=== PATIENT | female | born 1955 | race Caucasian/White ===

== ENCOUNTER 2022-07-12 17:00 | Emergency (ER) | payer MEDICARE ==
[~2022-07-12] VITALS: Ht 160 cm; Wt 74.8 kg
[2022-07-12] MEDS ORDERED: LIDOCAINE HCL 1% 20 ML VIAL ONE (18:47)
[2022-07-12 19:39] VITALS: BP 131/60
[2022-07-12] MEDS ORDERED: TETANUS/DIPHTHERIA TOXOID [ADULT] 0.5 ML VIAL IM ONE (19:43)
[2022-07-12] MEDS ORDERED: DIPH,PERTUSS(ACELL),TET VAC/PF 0.5 ML VIAL IM ONE (20:00)
== END 2022-07-12 19:53 | disposition home or self-care (01) ==
LOC: EDH 17:00
DX: S01.111A Laceration without foreign body of right eyelid and periocular area, initial encounter (principal); Z88.2 Allergy status to sulfonamides; W01.110A Fall on same level from slipping, tripping and stumbling with subsequent striking against sharp glass, initial encounter; Y93.89 Activity, other specified; Y92.89 Other specified places as the place of occurrence of the external cause; Y99.8 Other external cause status
CPT/HCPCS: 12013; 90471; 90714; 90715

== ENCOUNTER 2023-05-20 15:18 | Emergency (ER) | payer MEDICARE ==
[~2023-05-20] VITALS: Ht 160 cm; Wt 81.6 kg
[2023-05-20 16:05] LABS: BASOPHILS # (AUTO) 0.03 K/uL (0.00-0.20); BASOPHILS % (AUTO) 0.3 % (0.0-5.0); EOSINOPHILS # (AUTO) 0.18 K/uL (0.00-0.70); EOSINOPHILS % (AUTO) 1.6 % (0.0-8.0); IMMATURE GRANULOCYTE ABSOLUTE 0.04 K/uL (0-1); LYMPHOCYTES # (AUTO) 1.5 K/uL (1.0-4.8); LYMPHOCYTES % (AUTO) 13.6 % (21.0-51.0); MEAN CORPUSCULAR HEMOGLOBIN 32.3 pg (27.0-33.0); MEAN CORPUSCULAR VOLUME 95.1 fL (79-99); MONOCYTES # (AUTO) 0.9 K/uL (0.1-1.0); MONOCYTES % (AUTO) 8.4 % (3.0-13.0); NEUTROPHILS # (AUTO) 8.3 K/uL (1.8-7.7); NEUTROPHILS % (AUTO) 75.7 % (40.0-77.0); PLATELET COUNT (AUTO) 233 K/uL (130-400); RED BLOOD CELL COUNT(AUTO) 4.52 MIL/uL (4.00-5.50); RED CELL DISTRIBUTION WIDTH 11.8 % (11.0-15.5)
[2023-05-20 16:17] LABS: INR <= 0.93 (0.85-1.15); PROTHROMBIN TIME 10.8 SEC (9.6-11.6)
[2023-05-20 16:18] LABS: PARTIAL THROMBOPLASTIN TIME 32.5 SEC (26.3-35.5)
[2023-05-20 16:19] LABS: CREATININE 0.7 mg/dL (0.5-1.0); POTASSIUM 3.7 mmol/L (3.5-5.1)
[2023-05-20 16:25] LABS: B-TYPE NATRIURETIC PEPTIDE 30 pg/mL (0-100)
[2023-05-20 16:32] LABS: ALBUMIN 3.5 g/dL (3.5-5.0); BILIRUBIN,TOTAL 0.7 mg/dL (0.2-1.0); TOTAL PROTEIN, SERUM 7.4 g/dL (6.0-8.3)
[2023-05-20] MEDS: 0.9%NACL 1000ML 1,000 ML IV ONE (18:23)
[2023-05-20] MEDS ORDERED: D-ME118S47 PO (18:56)
[2023-05-20] MEDS ORDERED: AZIT250T9 PO (18:56)
[2023-05-20 19:29] VITALS: BP 127/78; PULSE 100; RESP 16; O2SAT 97
== END 2023-05-20 19:42 | disposition home or self-care (01) ==
LOC: EDH 15:18
DX: J40 Bronchitis, not specified as acute or chronic (principal); R00.0 Tachycardia, unspecified; F32.A Depression, unspecified; Z88.2 Allergy status to sulfonamides
CPT/HCPCS: 99285; 96360; 71045; 83735; 84484; 80053; 83880; 85025; 85378; 85610; 85730; 36415; 93005; J7030

== ENCOUNTER → 2023-07-05 | Outpatient (CLI) | payer MEDICARE ==
[~2023-07-05] MED LIST: AZIT250T9 PO; BROM118S48 PO
[2023-07-05 12:49] LABS: T4 (THYROXINE) 9.3 ug/dL (4.7-13.3); THYROID STIMULATING HORMONE 2.3 uIU/mL (0.36-3.74)
== END | disposition home or self-care (01) ==
LOC: LAB 10:00
PROVIDERS: ATTEND Internal Medicine Cardiovascular Disease
DX: R00.2 Palpitations (principal); I47.10 Supraventricular tachycardia, unspecified; Z79.899 Other long term (current) drug therapy
CPT/HCPCS: 36415; 80061; 84436; 84443; 84479

== ENCOUNTER → 2023-07-17 | Outpatient (CLI) | payer MEDICARE | END | disposition home or self-care (01) | LOC: SHCH 10:32 | PROVIDERS: ATTEND Internal Medicine Cardiovascular Disease | DX: I08.0 Rheumatic disorders of both mitral and aortic valves (principal); R00.2 Palpitations; I47.10 Supraventricular tachycardia, unspecified | CPT/HCPCS: 93306 ==

== ENCOUNTER → 2023-10-29 | Outpatient (CLI) | payer MEDICARE | END | disposition home or self-care (01) | LOC: RAH 15:17 | PROVIDERS: ATTEND Internal Medicine Critical Care Medicine | DX: R60.0 Localized edema (principal) | CPT/HCPCS: 93971 ==

== ENCOUNTER → 2024-03-11 | Outpatient (CLI) | payer MEDICARE ==
--- NOTE | 2024-03-15 09:01 | HMCSR ---
APPROVED REPORT Bilateral Lower Extremity Venous Study for DVT., Venous Competence. Indications g96.9 Vein Imaging CFV (R): Normal flow, augmentation and compression. No evidence of DVT. 10.96mm 1661ms of reflux. SFJ (R): Normal flow, augmentation and compression. No evidence of DVT. FEM (R): Normal flow, augmentation and compression. No evidence of DVT. POP (R): Normal flow, augmentation and compression. No evidence of DVT. DFV (R): Normal flow, augmentation and compression. No evidence of DVT. PTV (R): Normal flow, augmentation and compression. No evidence of DVT. Peroneals (R): Normal flow, augmentation and compression. No evidence of DVT. CFV (L): Normal flow, augmentation and compression. No evidence of DVT. 12.6mm 2433ms of reflux. SFJ (L): Normal flow, augmentation and compression. No evidence of DVT. FEM (L): Normal flow, augmentation and compression. No evidence of DVT. POP (L): Normal flow, augmentation and compression. No evidence of DVT. DFV (L): Normal flow, augmentation and compression. No evidence of DVT. PTV (L): Normal flow, augmentation and compression. No evidence of DVT. Peroneals (L): Normal flow, augmentation and compression. No evidence of DVT. Technologist Impression Deep veins of the bilateral lower extremities appear patent and compressible without thrombus. Deep venous reflux noted in the RCFV and LCFV. Superficial venous insufficiency noted in the RGSV at junction. RGSV junction 6.5mm 772ms thigh 3.0mm 0.0ms knee 1.8mm 0.0ms calf 1.1mm 0.0ms RSSV prox 2.5mm 0.0ms mid 2.1mm 0.0ms LGSV junction 7.8mm 0.0ms thigh 3.3mm 0.0ms knee 3.5mm 0.0ms calf 1.8mm 0.0ms LSSV prox 2.5mm 0.0ms mid 1.9mm 0.0ms Conclusion Deep veins of the bilateral lower extremities appear patent and compressible without thrombus. Deep venous reflux noted in the RCFV and LCFV. Superficial venous insufficiency noted in the RGSV at junction. Conclusion Deep veins of the bilateral lower extremities appear patent and compressible without thrombus. Deep venous reflux noted in the RCFV and LCFV. Superficial venous insufficiency noted in the RGSV at junction.
== END | disposition home or self-care (01) ==
LOC: SHCH 12:48
PROVIDERS: ATTEND Internal Medicine Cardiovascular Disease
DX: I87.2 Venous insufficiency (chronic) (peripheral) (principal); Q96.9 Turner's syndrome, unspecified
CPT/HCPCS: 93970